=== PATIENT | female | born 1965 | race Caucasian/White ===

== ENCOUNTER 2018-02-18 16:51 | Emergency (ER) | payer MEDICAID ==
[~2018-02-18] VITALS: Ht 154.9 cm; Wt 50.0 kg
[~2018-02-18 16:51] MED LIST: ALBU6.7H INH; ALBU8.5H5 NEB; ASPI-496 PO; CARV12.543 PO; CARV3.122 PO; CEFT1VIA6 IVPB; CYCL-259 PO; DOCU-131 PO; ENAL5TAB PO; ENOX40SY4 SQ; FLUT1BLS INH; FURO-93 IVPush; FURO40TA6 PO; IPRA12.9 INH; METH500T97 PO; NICO-485 TD; POTA10CA PO; POTA15TA9 PO; SIMV20TA PO; SPIR25TA PO; WARF-36 PO
[2018-02-18 16:54] VITALS: BP 143/94
[2018-02-18] MEDS ORDERED: DIPHTHERIA-TETANUS ADULT 0.5ML IM-VACC ONE (17:00)
[2018-02-18] MEDS ORDERED: PLEASE ENTER HEIGHT AND WEIGHT MC SCH (17:30)
== END 2018-02-18 18:32 | disposition left against medical advice (07) ==
LOC: ED 18:26
DX: M54.2 Cervicalgia (principal); M54.6 Pain in thoracic spine; M54.5 Low back pain; X58.XXXA Exposure to other specified factors, initial encounter; Y93.89 Activity, other specified; Y99.8 Other external cause status; Y92.828 Other wilderness area as the place of occurrence of the external cause
CPT/HCPCS: 99281